=== PATIENT | female | born 1930 | race African-American/Black ===

== ENCOUNTER 2020-12-05 09:23 | Emergency (ER) | payer SELFPAY ==
[~2020-12-05] VITALS: Ht 152.4 cm; Wt 41.0 kg
[2020-12-05 10:28] VITALS: BP 151/67
== END 2020-12-05 10:31 | disposition home or self-care (01) ==
LOC: ER 09:23
DX: R05 Cough (principal); Z20.822 Contact with and (suspected) exposure to COVID-19; J44.9 Chronic obstructive pulmonary disease, unspecified; F17.210 Nicotine dependence, cigarettes, uncomplicated; Z71.6 Tobacco abuse counseling
CPT/HCPCS: 71045; 99284; 99406; C9803; U0003; U0005